=== PATIENT | female | born 1950 | race Caucasian/White ===

== ENCOUNTER 2016-11-10 00:53 | Emergency (ER) | payer OTHER ==
--- NOTE | 2016-11-10 01:56 | ED CLINICAL REPORT ---
Clinical Report - Physicians/Mid Levels [facility] [address] [place] [address] 11/10/2016 0:54 Patient: HUA VENEGAS Time Seen: 01:44 Nov 10 2016. Arrived- By private vehicle. Historian- patient. CPT: ER phys charges level 3 (#[id number]). HISTORY OF PRESENT ILLNESS Chief Complaint: NECK PAIN. 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 was given medication but she's claims the medicines are not helping the pain. and it is still present. It is described as being moderate in degree and in the area of the left side of the cervical spine. The quality is noted to be sharp, aching and "pain". No bladder dysfunction, bowel dysfunction, sensory loss or motor loss. Patient denies an injury. No other injury. Similar symptoms previously: Recent medical care: The patient was seen recently at another facility. REVIEW OF SYSTEMS No fever, chills, headache, depression or sore throat. No cough, difficulty breathing, chest pain, skin rash or abdominal pain. No nausea, vomiting, diarrhea, difficulty with urination or urinary frequency. No hematuria. All systems otherwise negative, except as recorded above. PAST HISTORY Sprain. Tetanus Status. LNMP - Last Normal Menstrual Period. Arthritis. Hypertension. Hypercholesterolemia. Depression. --01:09 Josh Perry R.N. ADDITIONAL SURGERIES: Appendectomy. . Foot . Knee Surgery. Medications: Indapamide Oral. Losartan Potassium Oral. Venlafaxine HCl ER Oral. Simvastatin Oral. Hydrocodone-Acetaminophen Oral. Allergies: No Known Drug Allergy. SOCIAL HISTORY History of drug use: marijuana. ADDITIONAL NOTES The nursing notes have been reviewed. PHYSICAL EXAM Vital Signs: 11/10/2016 01:05 BP: 139/95. HR: 90. RR: 18. O2 saturation: 96%. Temp: 97.9 F. Appearance: Alert. Patient in mild distress. HEENT: Normal external inspection. Eyes: Pupils equal, round and reactive to light. ENT: Ears normal. Pharynx normal. Neck: Normal inspection. Pain in the neck upon movement. Moderate muscle spasm of the left posterior neck. CVS: Normal heart rate and rhythm. Heart sounds normal. Pulses normal. Respiratory: No respiratory distress. Breath sounds normal. Chest nontender. Abdomen: Normal inspection. Soft and nontender. Back: Normal inspection. No tenderness. Painless ROM. Skin: Skin warm. Normal skin color. No rash. Extremities: Extremities exhibit normal ROM. Extremities nontender. Neuro: Oriented X 3. Mood/affect normal. No motor deficit. No sensory deficit. Reflexes normal. PROGRESS AND PROCEDURES Course of Care: PT HAS MUSCLE SPASM THAT IS NOT CONTROLLED. Patient/family counseled. Disposition: Discharged. 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 Uncontrolled pain. INSTRUCTIONS Wear soft neck collar until better (especially at night.). Apply moist heat for 15-20 minutes three times a day for one weeks until better. Limit lifting. No strenuous activity. Your Current Medications: STOP TAKING THE FOLLOWING MEDICATIONS: Hydrocodone-Acetaminophen Oral. CONTINUE TAKING THE FOLLOWING MEDICATIONS: Indapamide Oral. Losartan Potassium Oral. Simvastatin Oral. Venlafaxine HCl ER Oral. Prescription Medications: Ibuprofen 600mg tablets: take 1 tablet orally every 8 hours as needed for pain. Dispense thirty (30). No refills. Soma 350 mg: Take 1 orally every 6 hours as needed for muscle spasm. Dispense twenty (20). No refills. Substitution is permissible. Oxycodone/APAP 5 mg/325 mg: take 1-2 tablets orally every 4 hours as needed for pain. Dispense twenty (20). No refill. Follow-up: Follow up with your doctor as scheduled. Understanding of the discharge instructions verbalized by patient and family. (Electronically signed by Hao Roblero MD 11/12/2016 21:19)
--- NOTE | 2016-11-10 01:56 | ED ORDER SUMMARY ---
..... Patient: HUA VENEGAS OrderSheet [facility] VisitID: [id number] [address] [place] [address] 66y, F Registration Date/Time: 11/10/2016 ORDER SHEET Weight: 90.7 kg (stated) Allergies: No Known Drug Allergy GENERAL ORDERS: MEDICATION ORDERS: Oxycodone-APAP PO 10/650 mg (NOW) (01:54 11/10/2016 Jennie BARNETT) (2:08 Benson Ambriz) Soma PO 350 mg (NOW) (01:54 11/10/2016 Jennie BARNETT) (2:09 Benson Ambriz) IV FLUIDS: ORDER SHEET NOTES: [Electronically signed by Josh Perry R.N. (02:20 11/10/2016)] [Electronically signed by Hao Roblero MD (21:19 11/12/2016)] [Electronically locked/signed by Josh Perry R.N. (02:20 11/10/2016)]
--- NOTE | 2016-11-10 01:56 | ED NURSING NOTES ---
Clinical Report - Nurses [facility] [address] [place] [address] 11/10/2016 0:54 Patient: HUA VENEGAS TRIAGE Triage time 0105. Acuity: LEVEL 4. Chief Complaint: NECK PAIN. --01:13 Josh Perry R.N. 01:05 11/10/16. BP: 139/95. HR: 90. RR: 18. O2 saturation: 96%. Temp: 97.9 F. Pain level now 05/23. --01: Josh Perry R.N. Weight: 90.7 kg stated. Height/Length: 64 inches Per Patient. BMI: 34.3. --01:09 Josh Perry R.N. Medications Hydrocodone-Acetaminophen Oral. --01: Josh Perry R.N. Simvastatin Oral. --01:08 Josh Perry R.N. Venlafaxine HCl ER Oral. --01:08 Josh Perry R.N. Losartan Potassium Oral. --01: Josh Perry R.N. Indapamide Oral. --01:08 Josh Perry R.N. Allergies No Known Drug Allergy. --01: Josh Perry R.N. History Arrived by private vehicle. Historian: patient. Onset. (3 days ago). No history of recent trauma. 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 SOCIAL HX: History of weekly drug use: marijuana. FALL RISK ASSESSMENT: Fall risk assessment completed. No fall risk identified. NUTRITIONAL RISK ASSESSMENT: The nutritional risk assessment revealed no deficiencies. FUNCTIONAL ASSESSMENT: Functional assessment: no impairments noted. LEARNING NEEDS ASSESSMENT: The learning needs assessment revealed no barriers. SKIN INTEGRITY ASSESSMENT: Skin integrity risk assessment completed. No skin integrity risk identified. --01:13 Josh Perry R.N. PROBLEMS: Sprain. Tetanus Status. LNMP - Last Normal Menstrual Period. Arthritis. Hypertension. Hypercholesterolemia. Depression. --01:09 Josh Perry R.N. ADDITIONAL SURGERIES: Appendectomy. . Foot . Knee Surgery. --01: Josh Perry R.N. PHYSICAL ASSESSMENT GENERAL / NEURO / PSYCH: Alert. Oriented X 4. RESPIRATORY: Respirations not labored. Chest nontender. Breath sounds within normal limits. CVS: Normal heart rate and rhythm. Capillary refill less than 2 seconds. GI / : Abdomen soft and nontender. Bowel sounds within normal limits. EXTREMITIES: Sensation intact in extremities. ROM of extremities within normal limits. BACK: Normal inspection of the neck and back. No neck or back tenderness. ROM of neck and back within normal limits. --01:14 Josh Perry R.N. NURSING PROGRESS NOTES Head of bed elevated. Reassurance given. Patient identifiers checked. Call light placed in reach. Bed placed in lowest position. Brakes of bed on. --01:15 Josh Perry R.N. 02:08 11/10/2016 Oxycodone-APAP (Oxycodone-Acetaminophen) PO 10/650 mg Tablets 2 tab given. Allergies verified, confirmed 5 rights and sedative warning given to the patient and patient's child development assistant. --02:08 Josh Perry R.N. 02:11/10/2016 Soma (Carisoprodol) PO 350 mg given. Allergies verified, confirmed 5 rights and sedative warning given to the patient's child development assistant. --02: Josh Perry R.N. DISPOSITION / DISCHARGE Departure time: 0201. Condition at departure: improved. No learning barriers present. Discharge instructions provided and reviewed with the patient and spouse. Reviewed warnings. Reviewed medication(s). Treatments reviewed. Reviewed referrals. Activity restrictions reviewed. Work note given. Patient and spouse verbalized understanding. Written instructions provided in Zimbabwean. The patient was discharged by the physician. She was discharged home and accompanied by spouse. She left the Emergency Department ambulatory and via private vehicle. Spouse driving. FALL RISK ASSESSMENT: Fall risk assessment completed. No fall risk identified. --02:17 Josh Perry R.N. 02:16 11/10/16. BP: 144/90. HR: 88. RR: 18. O2 saturation: 98%. Temp: 98 F. Pain level now 05/23. --02:17 Josh Perry R.N. ( of note: upon initial assessment pt refusing to move head around as it "is too painful" after finding out that the MD wrote a prescription for oxycodone pt moving head freely and smiling showing signs of excitement and pain free movement of her neck despite not having received any px rx or tx from us.). --02:20 Josh Perry R.N. Locked/Released at 11/10/2016 2:20 by Josh Perry R.N.
--- NOTE | 2016-11-10 01:56 | ED CLINICAL REPORT ---
Clinical Report - Physicians/Mid Levels [facility] [address] [place] [address] 11/10/2016 0:54 Patient: HUA VENEGAS Time Seen: 01:44 Nov 10 2016. Arrived- By private vehicle. Historian- patient. CPT: ER phys charges level 3 (#[id number]). HISTORY OF PRESENT ILLNESS Chief Complaint: NECK PAIN. Onset- about 3 days GIRL FRIDAY; seen at the clinic today for the same problem. was given medication but she's claims the medicines are not helping the pain. and it is still present. It is described as being moderate in degree and in the area of the left side of the cervical spine. The quality is noted to be sharp, aching and "pain". No bladder dysfunction, bowel dysfunction, sensory loss or motor loss. Patient denies an injury. No other injury. Similar symptoms previously: Recent medical care: The patient was seen recently at another facility. REVIEW OF SYSTEMS No fever, chills, headache, depression or sore throat. No cough, difficulty breathing, chest pain, skin rash or abdominal pain. No nausea, vomiting, diarrhea, difficulty with urination or urinary frequency. No hematuria. All systems otherwise negative, except as recorded above. PAST HISTORY Sprain. Tetanus Status. LNMP - Last Normal Menstrual Period. Arthritis. Hypertension. Hypercholesterolemia. Depression. --01:09 Josh Perry R.N. ADDITIONAL SURGERIES: Appendectomy. . Foot . Knee Surgery. Medications: Indapamide Oral. Losartan Potassium Oral. Venlafaxine HCl ER Oral. Simvastatin Oral. Hydrocodone-Acetaminophen Oral. Allergies: No Known Drug Allergy. SOCIAL HISTORY History of drug use: marijuana. ADDITIONAL NOTES The nursing notes have been reviewed. PHYSICAL EXAM Vital Signs: 11/10/2016 01:05 BP: 139/95. HR: 90. RR: 18. O2 saturation: 96%. Temp: 97.9 F. Appearance: Alert. Patient in mild distress. HEENT: Normal external inspection. Eyes: Pupils equal, round and reactive to light. ENT: Ears normal. Pharynx normal. Neck: Normal inspection. Pain in the neck upon movement. Moderate muscle spasm of the left posterior neck. CVS: Normal heart rate and rhythm. Heart sounds normal. Pulses normal. Respiratory: No respiratory distress. Breath sounds normal. Chest nontender. Abdomen: Normal inspection. Soft and nontender. Back: Normal inspection. No tenderness. Painless ROM. Skin: Skin warm. Normal skin color. No rash. Extremities: Extremities exhibit normal ROM. Extremities nontender. Neuro: Oriented X 3. Mood/affect normal. No motor deficit. No sensory deficit. Reflexes normal. PROGRESS AND PROCEDURES Course of Care: PT HAS MUSCLE SPASM THAT IS NOT CONTROLLED. Patient/family counseled. Disposition: Discharged. 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 Uncontrolled pain. INSTRUCTIONS Wear soft neck collar until better (especially at night.). Apply moist heat for 15-20 minutes three times a day for one weeks until better. Limit lifting. No strenuous activity. Your Current Medications: STOP TAKING THE FOLLOWING MEDICATIONS: Hydrocodone-Acetaminophen Oral. CONTINUE TAKING THE FOLLOWING MEDICATIONS: Indapamide Oral. Losartan Potassium Oral. Simvastatin Oral. Venlafaxine HCl ER Oral. Prescription Medications: Ibuprofen 600mg tablets: take 1 tablet orally every 8 hours as needed for pain. Dispense thirty (30). No refills. Soma 350 mg: Take 1 orally every 6 hours as needed for muscle spasm. Dispense twenty (20). No refills. Substitution is permissible. Oxycodone/APAP 5 mg/325 mg: take 1-2 tablets orally every 4 hours as needed for pain. Dispense twenty (20). No refill. Follow-up: Follow up with your doctor as scheduled. Understanding of the discharge instructions verbalized by patient and family. (Electronically signed by Hao Roblero MD 11/12/2016 21:19)
--- NOTE | 2016-11-10 01:56 | ED NURSING NOTES ---
Clinical Report - Nurses [facility] [address] [place] [address] 11/10/2016 0:54 Patient: HUA VENEGAS TRIAGE Triage time 0105. Acuity: LEVEL 4. Chief Complaint: NECK PAIN. --01:13 Josh Perry R.N. 01:05 11/10/16. BP: 139/95. HR: 90. RR: 18. O2 saturation: 96%. Temp: 97.9 F. Pain level now 05/23. --01: Josh Perry R.N. Weight: 90.7 kg stated. Height/Length: 64 inches Per Patient. BMI: 34.3. --01:09 Josh Perry R.N. Medications Hydrocodone-Acetaminophen Oral. --01: Josh Perry R.N. Simvastatin Oral. --01:08 Josh Perry R.N. Venlafaxine HCl ER Oral. --01:08 Josh Perry R.N. Losartan Potassium Oral. --01: Josh Perry R.N. Indapamide Oral. --01:08 Josh Perry R.N. Allergies No Known Drug Allergy. --01: Josh Perry R.N. History Arrived by private vehicle. Historian: patient. Onset. (3 days ago). No history of recent trauma. 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 SOCIAL HX: History of weekly drug use: marijuana. FALL RISK ASSESSMENT: Fall risk assessment completed. No fall risk identified. NUTRITIONAL RISK ASSESSMENT: The nutritional risk assessment revealed no deficiencies. FUNCTIONAL ASSESSMENT: Functional assessment: no impairments noted. LEARNING NEEDS ASSESSMENT: The learning needs assessment revealed no barriers. SKIN INTEGRITY ASSESSMENT: Skin integrity risk assessment completed. No skin integrity risk identified. --01:13 Josh Perry R.N. PROBLEMS: Sprain. Tetanus Status. LNMP - Last Normal Menstrual Period. Arthritis. Hypertension. Hypercholesterolemia. Depression. --01:09 Josh Perry R.N. ADDITIONAL SURGERIES: Appendectomy. . Foot . Knee Surgery. --01: Josh Perry R.N. PHYSICAL ASSESSMENT GENERAL / NEURO / PSYCH: Alert. Oriented X 4. RESPIRATORY: Respirations not labored. Chest nontender. Breath sounds within normal limits. CVS: Normal heart rate and rhythm. Capillary refill less than 2 seconds. GI / : Abdomen soft and nontender. Bowel sounds within normal limits. EXTREMITIES: Sensation intact in extremities. ROM of extremities within normal limits. BACK: Normal inspection of the neck and back. No neck or back tenderness. ROM of neck and back within normal limits. --01:14 Josh Perry R.N. NURSING PROGRESS NOTES Head of bed elevated. Reassurance given. Patient identifiers checked. Call light placed in reach. Bed placed in lowest position. Brakes of bed on. --01:15 Josh Perry R.N. 02:08 11/10/2016 Oxycodone-APAP (Oxycodone-Acetaminophen) PO 10/650 mg Tablets 2 tab given. Allergies verified, confirmed 5 rights and sedative warning given to the patient and patient's office technician. --02:08 Josh Perry R.N. 02:11/10/2016 Soma (Carisoprodol) PO 350 mg given. Allergies verified, confirmed 5 rights and sedative warning given to the patient's office technician. --02: Josh Perry R.N. DISPOSITION / DISCHARGE Departure time: 0201. Condition at departure: improved. No learning barriers present. Discharge instructions provided and reviewed with the patient and spouse. Reviewed warnings. Reviewed medication(s). Treatments reviewed. Reviewed referrals. Activity restrictions reviewed. Work note given. Patient and spouse verbalized understanding. Written instructions provided in [place] Rican. The patient was discharged by the physician. She was discharged home and accompanied by spouse. She left the Emergency Department ambulatory and via private vehicle. Spouse driving. FALL RISK ASSESSMENT: Fall risk assessment completed. No fall risk identified. --02:17 Josh Perry R.N. 02:16 11/10/16. BP: 144/90. HR: 88. RR: 18. O2 saturation: 98%. Temp: 98 F. Pain level now 05/23. --02:17 Josh Perry R.N. ( of note: upon initial assessment pt refusing to move head around as it "is too painful" after finding out that the MD wrote a prescription for oxycodone pt moving head freely and smiling showing signs of excitement and pain free movement of her neck despite not having received any px rx or tx from us.). --02:20 Josh Perry R.N. Locked/Released at 11/10/2016 2:20 by Josh Perry R.N.
--- NOTE | 2016-11-10 01:56 | ED ORDER SUMMARY ---
..... Patient: HUA VENEGAS OrderSheet [facility] VisitID: [id number] [address] [place] [address] 66y, F Registration Date/Time: 11/10/2016 ORDER SHEET Weight: 90.7 kg (stated) Allergies: No Known Drug Allergy GENERAL ORDERS: MEDICATION ORDERS: Oxycodone-APAP PO 10/650 mg (NOW) (01:54 11/10/2016 Jennie BARNETT) (2:08 Benson Ambriz) Soma PO 350 mg (NOW) (01:54 11/10/2016 Jennie BARNETT) (2:09 Benson Ambriz) IV FLUIDS: ORDER SHEET NOTES: [Electronically signed by Josh Perry R.N. (02:20 11/10/2016)] [Electronically signed by Hao Roblero MD (21:19 11/12/2016)] [Electronically locked/signed by Josh Perry R.N. (02:20 11/10/2016)]
--- NOTE | 2016-11-12 21:19 | ED MED RECONCILIATION SUMMARY ---
Patient: HUA VENEGAS Medication Reconciliation Report [facility] VisitID: [id number] [address] [place] [address] 66y, F Registration Date/Time: 11/10/2016 Weight: 90.7 kg Height/Length: 64 in. BMI: 34.3 ALLERGIES: No Known Drug Allergy The patient's Home Medications are listed below: STOP TAKING THE FOLLOWING MEDICATIONS: Hydrocodone-Acetaminophen Oral CONTINUE TAKING THE FOLLOWING MEDICATIONS: Indapamide Oral Losartan Potassium Oral Simvastatin Oral Venlafaxine HCl ER Oral The source(s) of the original Home Medication information: Not obtained. The following Medications were given to the patient in the Emergency Department: Oxycodone-APAP [PO] PO 2 tab, administered: 11/10/2016 2:08:00 AM Soma [PO] PO 350 mg, administered: 11/10/2016 2:09:00 AM The following Medications were prescribed to the patient: Ibuprofen 600mg tablets: take 1 tablet orally every 8 hours as needed for pain. Dispense thirty (30). No refills. -- Hao Roblero MD Soma 350 mg: Take 1 orally every 6 hours as needed for muscle spasm. Dispense twenty (20). No refills. Substitution is permissible. -- Hao Roblero MD Oxycodone/APAP 5 mg/325 mg: take 1-2 tablets orally every 4 hours as needed for pain. Dispense twenty (20). No refill. -- Hao Roblero MD
--- NOTE | 2016-11-12 21:19 | ED DISCHARGE INSTRUCTIONS ---
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 Uncontrolled pain. INSTRUCTIONS Wear soft neck collar until better (especially at night.). Apply moist heat for 15-20 minutes three times a day for one weeks until better. Limit lifting. No strenuous activity. Your Current Medications: STOP TAKING THE FOLLOWING MEDICATIONS: Hydrocodone-Acetaminophen Oral. CONTINUE TAKING THE FOLLOWING MEDICATIONS: Indapamide Oral. Losartan Potassium Oral. Simvastatin Oral. Venlafaxine HCl ER Oral. Prescription Medications: Ibuprofen 600mg tablets: take 1 tablet orally every 8 hours as needed for pain. Dispense thirty (30). No refills. Soma 350 mg: Take 1 orally every 6 hours as needed for muscle spasm. Dispense twenty (20). No refills. Substitution is permissible. Oxycodone/APAP 5 mg/325 mg: take 1-2 tablets orally every 4 hours as needed for pain. Dispense twenty (20). No refill. Follow-up: Follow up with your doctor as scheduled. Understanding of the discharge instructions verbalized by patient and family. ADDITIONAL INFORMATION Cervical Collar A cervical collar is used to provide support and limit movement of the neck. It is usually provided after a moderate to severe neck sprain. Home Use: Unless told otherwise, the collar should be worn whenever you are out of bed. It may be taken off for sleep and for bathing. When lying down, support your neck with a small pillow or rolled up towel under the neck. When adjusting your pillows, try to keep the neck in a neutral position (in line with the upper back). Pillows should not be so thick as to bend your head forward. Do not wear the collar longer than advised by your doctor. This may lead to further stiffness from lack of neck movement. Get Prompt Medical Attention if any of the following occur: Increasing pain in the neck Weakness or numbness in the arms or hands Pain spreading from the neck into the shoulder or arms Fever of 100.4F(38C) or higher, or as directed by your healthcare provider Oxycodone Hydrochloride, Acetaminophen Oral tablet What is this medicine? ACETAMINOPHEN; OXYCODONE (a set a KOSTA constanza fen; ox i KOE done) is a pain reliever. It is used to treat mild to moderate pain. How should I use this medicine? Take this medicine by mouth with a full glass of water. Follow the directions on the prescription label. Take your medicine at regular intervals. Do not take your medicine more often than directed. Talk to your customer relationship specialist regarding the use of this medicine in children. Special care may be needed. Patients over 65 years old may have a stronger reaction and need a smaller dose. What side effects may I notice from receiving this medicine? Side effects that you should report to your doctor or health care rep as soon as possible: allergic reactions like skin rash, itching or hives, swelling of the face, lips, or tongue breathing difficulties, wheezing confusion light headedness or fainting spells severe stomach pain yellowing of the skin or the whites of the eyes Side effects that usually do not require medical attention (report to your doctor or health care rep if they continue or are bothersome): dizziness drowsiness nausea vomiting What may interact with this medicine? alcohol antihistamines barbiturates like amobarbital, butalbital, butabarbital, methohexital, pentobarbital, phenobarbital, thiopental, and secobarbital benztropine drugs for bladder problems like solifenacin, trospium, oxybutynin, tolterodine, hyoscyamine, and methscopolamine drugs for breathing problems like ipratropium and tiotropium drugs for certain stomach or intestine problems like propantheline, homatropine methylbromide, glycopyrrolate, atropine, belladonna, and dicyclomine general anesthetics like etomidate, ketamine, nitrous oxide, propofol, desflurane, enflurane, halothane, isoflurane, and sevoflurane medicines for depression, anxiety, or psychotic disturbances medicines for sleep muscle relaxants naltrexone narcotic medicines (opiates) for pain phenothiazines like perphenazine, thioridazine, chlorpromazine, mesoridazine, fluphenazine, prochlorperazine, promazine, and trifluoperazine scopolamine tramadol trihexyphenidyl What if I miss a dose? If you miss a dose, take it as soon as you can. If it is almost time for your next dose, take only that dose. Do not take double or extra doses. Where should I keep my medicine? Keep out of the reach of children. This medicine can be abused. Keep your medicine in a safe place to protect it from theft. Do not share this medicine with anyone. Selling or giving away this medicine is dangerous and against the law. Store at room temperature between 20 and 25 degrees C (68 and 77 degrees F). Keep container tightly closed. Protect from light. This medicine may cause accidental overdose and if it is taken by other adults, children, or pets. Flush any unused medicine down the toilet to reduce the chance of harm. Do not use the medicine after the expiration date. What should I tell my health care provider before I take this medicine? They need to know if you have any of these conditions: brain tumor Crohn's disease, inflammatory bowel disease, or ulcerative colitis drink more than 3 alcohol containing drinks per day drug abuse or addiction head injury heart or circulation problems kidney disease or problems going to the bathroom liver disease lung disease, asthma, or breathing problems an unusual or allergic reaction to acetaminophen, oxycodone, other opioid analgesics, other medicines, foods, dyes, or preservatives or trying to get breast-feeding What should I watch for while using this medicine? Tell your doctor or health care rep if your pain does not go away, if it gets worse, or if you have new or a different type of pain. You may develop tolerance to the medicine. Tolerance means that you will need a higher dose of the medication for pain relief. Tolerance is normal and is expected if you take this medicine for a long time. Do not suddenly stop taking your medicine because you may develop a severe reaction. Your body becomes used to the medicine. This does NOT mean you are addicted. Addiction is a behavior related to getting and using a drug for a non-medical reason. If you have pain, you have a medical reason to take pain medicine. Your doctor will tell you how much medicine to take. If your doctor wants you to stop the medicine, the dose will be slowly lowered over time to avoid any side effects. You may get drowsy or dizzy. Do not drive, use machinery, or do anything that needs mental alertness until you know how this medicine affects you. Do not stand or sit up quickly, especially if you are an older patient. This reduces the risk of dizzy or fainting spells. Alcohol may interfere with the effect of this medicine. Avoid alcoholic drinks. There are different types of narcotic medicines (opiates) for pain. If you take more than one type at the same time, you may have more side effects. Give your health care provider a list of all medicines you use. Your doctor will tell you how much medicine to take. Do not take more medicine than directed. Call emergency for help if you have problems breathing. The medicine will cause constipation. Try to have a bowel movement at least every 2 to 3 days. If you do not have a bowel movement for 3 days, call your doctor or health care rep. Do not take Tylenol (acetaminophen) or medicines that have acetaminophen with this medicine. Too much acetaminophen can be very dangerous. Many nonprescription medicines contain acetaminophen. Always read the labels carefully to avoid taking more acetaminophen. You have been given the following additional information: Cervical Collar Oxycodone Hydrochloride, Acetaminophen Oral tablet Limit lifting. No strenuous activity. (Electronically signed by Hao Roblero MD 11/12/2016 21:19)
--- NOTE | 2016-11-12 21:19 | ED DISCHARGE INSTRUCTIONS ---
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 Uncontrolled pain. INSTRUCTIONS Wear soft neck collar until better (especially at night.). Apply moist heat for 15-20 minutes three times a day for one weeks until better. Limit lifting. No strenuous activity. Your Current Medications: STOP TAKING THE FOLLOWING MEDICATIONS: Hydrocodone-Acetaminophen Oral. CONTINUE TAKING THE FOLLOWING MEDICATIONS: Indapamide Oral. Losartan Potassium Oral. Simvastatin Oral. Venlafaxine HCl ER Oral. Prescription Medications: Ibuprofen 600mg tablets: take 1 tablet orally every 8 hours as needed for pain. Dispense thirty (30). No refills. Soma 350 mg: Take 1 orally every 6 hours as needed for muscle spasm. Dispense twenty (20). No refills. Substitution is permissible. Oxycodone/APAP 5 mg/325 mg: take 1-2 tablets orally every 4 hours as needed for pain. Dispense twenty (20). No refill. Follow-up: Follow up with your doctor as scheduled. Understanding of the discharge instructions verbalized by patient and family. ADDITIONAL INFORMATION Cervical Collar A cervical collar is used to provide support and limit movement of the neck. It is usually provided after a moderate to severe neck sprain. Home Use: Unless told otherwise, the collar should be worn whenever you are out of bed. It may be taken off for sleep and for bathing. When lying down, support your neck with a small pillow or rolled up towel under the neck. When adjusting your pillows, try to keep the neck in a neutral position (in line with the upper back). Pillows should not be so thick as to bend your head forward. Do not wear the collar longer than advised by your doctor. This may lead to further stiffness from lack of neck movement. Get Prompt Medical Attention if any of the following occur: Increasing pain in the neck Weakness or numbness in the arms or hands Pain spreading from the neck into the shoulder or arms Fever of 100.4F(38C) or higher, or as directed by your healthcare provider Oxycodone Hydrochloride, Acetaminophen Oral tablet What is this medicine? ACETAMINOPHEN; OXYCODONE (a set a KOSTA constanza fen; ox i KOE done) is a pain reliever. It is used to treat mild to moderate pain. How should I use this medicine? Take this medicine by mouth with a full glass of water. Follow the directions on the prescription label. Take your medicine at regular intervals. Do not take your medicine more often than directed. Talk to your air defense control officer regarding the use of this medicine in children. Special care may be needed. Patients over 65 years old may have a stronger reaction and need a smaller dose. What side effects may I notice from receiving this medicine? Side effects that you should report to your doctor or health nurse healthcare manager as soon as possible: allergic reactions like skin rash, itching or hives, swelling of the face, lips, or tongue breathing difficulties, wheezing confusion light headedness or fainting spells severe stomach pain yellowing of the skin or the whites of the eyes Side effects that usually do not require medical attention (report to your doctor or health nurse healthcare manager if they continue or are bothersome): dizziness drowsiness nausea vomiting What may interact with this medicine? alcohol antihistamines barbiturates like amobarbital, butalbital, butabarbital, methohexital, pentobarbital, phenobarbital, thiopental, and secobarbital benztropine drugs for bladder problems like solifenacin, trospium, oxybutynin, tolterodine, hyoscyamine, and methscopolamine drugs for breathing problems like ipratropium and tiotropium drugs for certain stomach or intestine problems like propantheline, homatropine methylbromide, glycopyrrolate, atropine, belladonna, and dicyclomine general anesthetics like etomidate, ketamine, nitrous oxide, propofol, desflurane, enflurane, halothane, isoflurane, and sevoflurane medicines for depression, anxiety, or psychotic disturbances medicines for sleep muscle relaxants naltrexone narcotic medicines (opiates) for pain phenothiazines like perphenazine, thioridazine, chlorpromazine, mesoridazine, fluphenazine, prochlorperazine, promazine, and trifluoperazine scopolamine tramadol trihexyphenidyl What if I miss a dose? If you miss a dose, take it as soon as you can. If it is almost time for your next dose, take only that dose. Do not take double or extra doses. Where should I keep my medicine? Keep out of the reach of children. This medicine can be abused. Keep your medicine in a safe place to protect it from theft. Do not share this medicine with anyone. Selling or giving away this medicine is dangerous and against the law. Store at room temperature between 20 and 25 degrees C (68 and 77 degrees F). Keep container tightly closed. Protect from light. This medicine may cause accidental overdose and if it is taken by other adults, children, or pets. Flush any unused medicine down the toilet to reduce the chance of harm. Do not use the medicine after the expiration date. What should I tell my health care provider before I take this medicine? They need to know if you have any of these conditions: brain tumor Crohn's disease, inflammatory bowel disease, or ulcerative colitis drink more than 3 alcohol containing drinks per day drug abuse or addiction head injury heart or circulation problems kidney disease or problems going to the bathroom liver disease lung disease, asthma, or breathing problems an unusual or allergic reaction to acetaminophen, oxycodone, other opioid analgesics, other medicines, foods, dyes, or preservatives or trying to get breast-feeding What should I watch for while using this medicine? Tell your doctor or health nurse healthcare manager if your pain does not go away, if it gets worse, or if you have new or a different type of pain. You may develop tolerance to the medicine. Tolerance means that you will need a higher dose of the medication for pain relief. Tolerance is normal and is expected if you take this medicine for a long time. Do not suddenly stop taking your medicine because you may develop a severe reaction. Your body becomes used to the medicine. This does NOT mean you are addicted. Addiction is a behavior related to getting and using a drug for a non-medical reason. If you have pain, you have a medical reason to take pain medicine. Your doctor will tell you how much medicine to take. If your doctor wants you to stop the medicine, the dose will be slowly lowered over time to avoid any side effects. You may get drowsy or dizzy. Do not drive, use machinery, or do anything that needs mental alertness until you know how this medicine affects you. Do not stand or sit up quickly, especially if you are an older patient. This reduces the risk of dizzy or fainting spells. Alcohol may interfere with the effect of this medicine. Avoid alcoholic drinks. There are different types of narcotic medicines (opiates) for pain. If you take more than one type at the same time, you may have more side effects. Give your health care provider a list of all medicines you use. Your doctor will tell you how much medicine to take. Do not take more medicine than directed. Call emergency for help if you have problems breathing. The medicine will cause constipation. Try to have a bowel movement at least every 2 to 3 days. If you do not have a bowel movement for 3 days, call your doctor or health nurse healthcare manager. Do not take Tylenol (acetaminophen) or medicines that have acetaminophen with this medicine. Too much acetaminophen can be very dangerous. Many nonprescription medicines contain acetaminophen. Always read the labels carefully to avoid taking more acetaminophen. You have been given the following additional information: Cervical Collar Oxycodone Hydrochloride, Acetaminophen Oral tablet Limit lifting. No strenuous activity. (Electronically signed by Hao Roblero MD 11/12/2016 21:19)
--- NOTE | 2016-11-12 21:19 | ED MAR SUMMARY ---
..... Medication Administration Record [facility] [address] [place] [address] Patient: HUA VENEGAS Visit ID: [id number] 66y, F Weight: 90.7 kg Height/Length: 64 in BMI: 34.3 ALLERGIES: No Known Drug Allergy Given 02:08 11/10/2016 Josh Perry R.N. Medication Administered: OXYCODONE-APAP [PO] (OXYCODONE-ACETAMINOPHEN), Dose: 2 tab 10/650 mg Tablets PO. Medication Ordered: Oxycodone-APAP PO 10/650 mg (NOW). Given 02:09 11/10/2016 Josh Perry R.N. Medication Administered: SOMA [PO] (CARISOPRODOL), Dose: 350 mg PO. Medication Ordered: Soma PO 350 mg (NOW).
--- NOTE | 2016-11-12 21:19 | ED MED RECONCILIATION SUMMARY ---
Patient: HUA VENEGAS Medication Reconciliation Report [facility] VisitID: [id number] [address] [place] [address] 66y, F Registration Date/Time: 11/10/2016 Weight: 90.7 kg Height/Length: 64 in. BMI: 34.3 ALLERGIES: No Known Drug Allergy The patient's Home Medications are listed below: STOP TAKING THE FOLLOWING MEDICATIONS: Hydrocodone-Acetaminophen Oral CONTINUE TAKING THE FOLLOWING MEDICATIONS: Indapamide Oral Losartan Potassium Oral Simvastatin Oral Venlafaxine HCl ER Oral The source(s) of the original Home Medication information: Not obtained. The following Medications were given to the patient in the Emergency Department: Oxycodone-APAP [PO] PO 2 tab, administered: 11/10/2016 2:08:00 AM Soma [PO] PO 350 mg, administered: 11/10/2016 2:09:00 AM The following Medications were prescribed to the patient: Ibuprofen 600mg tablets: take 1 tablet orally every 8 hours as needed for pain. Dispense thirty (30). No refills. -- Hao Roblero MD Soma 350 mg: Take 1 orally every 6 hours as needed for muscle spasm. Dispense twenty (20). No refills. Substitution is permissible. -- Hao Roblero MD Oxycodone/APAP 5 mg/325 mg: take 1-2 tablets orally every 4 hours as needed for pain. Dispense twenty (20). No refill. -- Hao Roblero MD
--- NOTE | 2016-11-12 21:19 | ED MAR SUMMARY ---
..... Medication Administration Record [facility] [address] [place] [address] Patient: HUA VENEGAS Visit ID: [id number] 66y, F Weight: 90.7 kg Height/Length: 64 in BMI: 34.3 ALLERGIES: No Known Drug Allergy Given 02:08 11/10/2016 Josh Perry R.N. Medication Administered: OXYCODONE-APAP [PO] (OXYCODONE-ACETAMINOPHEN), Dose: 2 tab 10/650 mg Tablets PO. Medication Ordered: Oxycodone-APAP PO 10/650 mg (NOW). Given 02:09 11/10/2016 Josh Perry R.N. Medication Administered: SOMA [PO] (CARISOPRODOL), Dose: 350 mg PO. Medication Ordered: Soma PO 350 mg (NOW).
== END 2016-11-10 02:30 | disposition home or self-care (01) ==
LOC: ED SRH 00:53
DX: M47.892 Other spondylosis, cervical region (principal); M62.838 Other muscle spasm; I10 Essential (primary) hypertension